=== PATIENT | female | born 1970 | race Asian ===

== ENCOUNTER 2016-08-26 07:23 | Outpatient (CLI) | payer OTHER ==
[2016-08-26 08:11] LABS: PLATELET COUNT 277 K/uL (152-353)
[2016-08-26 08:14] LABS: POTASSIUM 3.6 mmol/L (3.6-5.2); SODIUM 137 mmol/L (136-145)
== END 2016-08-26 19:09 | disposition home or self-care (01) ==
LOC: LABW 07:23
PROVIDERS: Family Medicine
DX: R20.2 Paresthesia of skin (principal); R53.83 Other fatigue; I10 Essential (primary) hypertension; E78.4 Other hyperlipidemia; E55.9 Vitamin D deficiency, unspecified
CPT/HCPCS: 36415; 80053; 80061; 81000; 82306; 82607; 83036; 84443; 85027

== ENCOUNTER 2016-12-22 12:01 | Outpatient (CLI) | payer OTHER ==
[2016-12-22 12:40] LABS: POTASSIUM 3.7 mmol/L (3.6-5.2); SODIUM 141 mmol/L (136-145)
== END 2016-12-22 19:06 | disposition home or self-care (01) ==
LOC: LABW 12:01
PROVIDERS: Family Medicine
DX: E03.8 Other specified hypothyroidism (principal); R60.0 Localized edema
CPT/HCPCS: 36415; 80053; 81000; 83880; 84436; 84443

== ENCOUNTER 2017-11-07 10:06 | Outpatient (CLI) | payer OTHER | END 2017-11-07 20:45 | disposition home or self-care (01) | LOC: RAD 10:06 | DX: M25.532 Pain in left wrist (principal) ==

== ENCOUNTER 2017-11-26 08:28 | Emergency (ER) | payer OTHER ==
[~2017-11-26] VITALS: Ht 175.3 cm; Wt 173.3 kg
[2017-11-26 09:23] LABS: PLATELET COUNT 310 K/uL (152-353); POTASSIUM 3.8 mmol/L (3.6-5.2)
[2017-11-26 13:22] VITALS: BP 168/80; TEMP 98.1
== END 2017-11-26 13:33 | disposition home or self-care (01) ==
LOC: ED 08:28
PROVIDERS: Specialist
DX: M54.9 Dorsalgia, unspecified (principal); N39.0 Urinary tract infection, site not specified; N20.0 Calculus of kidney
CPT/HCPCS: 36415; 80048; 81000; 85027; 96365; 96372; 99284; J0690; J1170; J1885; J2405; Q9963

== ENCOUNTER 2017-12-08 08:00 | Outpatient (CLI) | payer OTHER | END 2017-12-08 19:13 | disposition home or self-care (01) | LOC: RAD 08:00 | DX: M54.17 Radiculopathy, lumbosacral region (principal) | CPT/HCPCS: 36415; 85651; 86039; 86140; 86431 ==

== ENCOUNTER 2018-02-01 15:22 | Outpatient (CLI) | payer OTHER | END 2018-02-01 22:20 | disposition home or self-care (01) | LOC: LABW 15:22 | DX: E03.8 Other specified hypothyroidism (principal); N95.1 Menopausal and female climacteric states; M25.561 Pain in right knee; M25.461 Effusion, right knee | CPT/HCPCS: 36415; 82670; 83001; 83002; 84439; 84443 ==

== ENCOUNTER 2018-02-20 15:25 | Outpatient (CLI) | payer OTHER | END 2018-02-20 21:18 | disposition home or self-care (01) | LOC: US 15:25 | DX: M25.561 Pain in right knee (principal); N95.1 Menopausal and female climacteric states; E03.8 Other specified hypothyroidism; E01.0 Iodine-deficiency related diffuse (endemic) goiter ==

== ENCOUNTER 2018-05-02 15:18 | Outpatient (CLI) | payer OTHER | END 2018-05-02 21:27 | disposition home or self-care (01) | LOC: MAMMO 15:18 | DX: Z12.31 Encounter for screening mammogram for malignant neoplasm of breast (principal) ==

== ENCOUNTER 2018-10-21 19:16 | Emergency (ER) | payer OTHER ==
[~2018-10-21] VITALS: Ht 175.3 cm; Wt 136.5 kg
[2018-10-21] MEDS ORDERED: ENALAPRIL5 MG PO (19:28)
[2018-10-21] MEDS ORDERED: TOPAMAX100 MG PO (19:28)
[2018-10-21] MEDS ORDERED: LORA10TA3 PO (19:29)
[2018-10-21] MEDS ORDERED: OMEP40CA PO (19:29)
[2018-10-21 21:10] VITALS: BP 112/65; TEMP 97.5
== END 2018-10-21 21:10 | disposition home or self-care (01) ==
LOC: ED 19:16
DX: M54.5 Low back pain (principal)
CPT/HCPCS: 81000; 99283

== ENCOUNTER 2018-11-16 12:04 | Outpatient (CLI) | payer OTHER ==
[~2018-11-16 12:04] MED LIST: ENALAPRIL5 MG PO; LORA10TA3 PO; OMEP40CA PO; TOPAMAX100 MG PO
== END 2018-11-16 23:11 | disposition home or self-care (01) ==
LOC: RAD 12:04
DX: M25.532 Pain in left wrist (principal)

== ENCOUNTER 2019-06-07 07:14 | Emergency (ER) | payer OTHER ==
[~2019-06-07] VITALS: Ht 175.3 cm; Wt 169.6 kg
[2019-06-07 07:19] VITALS: TEMP 98.2
[2019-06-07 07:48] LABS: PLATELET COUNT 290 K/uL (152-353)
[2019-06-07 08:07] LABS: POTASSIUM 3.7 mmol/L (3.6-5.2)
[2019-06-07 11:20] VITALS: BP 106/66
== END 2019-06-07 11:20 | disposition home or self-care (01) ==
LOC: ED 07:14
PROVIDERS: Emergency Medicine
DX: R10.84 Generalized abdominal pain (principal); R19.7 Diarrhea, unspecified; R11.2 Nausea with vomiting, unspecified
CPT/HCPCS: 80053; 81000; 82150; 83690; 85027; 96360; 99284; J1885; Q9963

== ENCOUNTER 2019-08-09 08:36 | Outpatient (CLI) | payer OTHER | END 2019-08-09 22:38 | disposition home or self-care (01) | LOC: MAMMO 08:36 | DX: Z12.31 Encounter for screening mammogram for malignant neoplasm of breast (principal) ==

== ENCOUNTER 2019-08-29 21:11 | Emergency (ER) | payer OTHER ==
[~2019-08-29] VITALS: Ht 175.3 cm; Wt 170.1 kg
[2019-08-29] MEDS ORDERED: LEVO0.0723 PO (21:48)
[2019-08-29 21:58] LABS: PLATELET COUNT 273 K/uL (152-353)
[2019-08-29 22:05] LABS: POTASSIUM 3.2 mmol/L (3.6-5.2); SODIUM 136 mmol/L (136-145)
[2019-08-29 23:01] VITALS: BP 142/81; TEMP 98.3
== END 2019-08-29 23:02 | disposition home or self-care (01) ==
LOC: ED 21:11
PROVIDERS: Emergency Medicine
DX: R07.89 Other chest pain (principal)
CPT/HCPCS: 80053; 82550; 82553; 84484; 85027; 85379; 93005; 96372; 99283; J1885

== ENCOUNTER 2020-06-12 13:27 | Outpatient (CLI) | payer OTHER ==
[~2020-06-12 13:27] MED LIST changes: +LEVO0.0723 PO
== END 2020-06-12 19:06 | disposition home or self-care (01) ==
LOC: RAD 13:27
PROVIDERS: ATTEND Nurse Practitioner
DX: R06.02 Shortness of breath (principal); R07.9 Chest pain, unspecified

== ENCOUNTER 2020-06-16 20:53 | Emergency (ER) | payer OTHER ==
[~2020-06-16] VITALS: Ht 172.7 cm; Wt 146.1 kg
[2020-06-16 21:10] VITALS: TEMP 97.7
[2020-06-16 22:45] LABS: PLATELET COUNT 242 K/uL (152-353)
[2020-06-16 23:08] LABS: POTASSIUM 3.7 mmol/L (3.6-5.2)
[2020-06-17 00:42] VITALS: BP 136/73
== END 2020-06-17 00:42 | disposition home or self-care (01) ==
LOC: ED 20:53
PROVIDERS: Emergency Medicine Emergency Medical Services
DX: M79.661 Pain in right lower leg (principal)
CPT/HCPCS: 36415; 80048; 85027; 85379; 85610; 96360; 96372; 96375; 99284; J1650; J2270; J2405

== ENCOUNTER 2020-06-17 09:58 | Emergency (ER) | payer OTHER ==
[~2020-06-17] VITALS: Ht 172.7 cm; Wt 146.1 kg
[2020-06-17 10:05] VITALS: TEMP 100.5
[2020-06-17 12:50] VITALS: BP 110/60
== END 2020-06-17 12:50 | disposition home or self-care (01) ==
LOC: ED 09:58
DX: I82.431 Acute embolism and thrombosis of right popliteal vein (principal)
CPT/HCPCS: 96372; 99283; J2175

== ENCOUNTER 2020-06-19 13:31 | Outpatient (CLI) | payer OTHER | END 2020-06-19 20:20 | disposition home or self-care (01) | LOC: CT 13:31 | PROVIDERS: ATTEND Nurse Practitioner | DX: I82.409 Acute embolism and thrombosis of unspecified deep veins of unspecified lower extremity (principal); R06.02 Shortness of breath; R07.9 Chest pain, unspecified | CPT/HCPCS: Q9963 ==

== ENCOUNTER 2020-06-19 16:02 | Emergency (ER) | payer OTHER ==
[~2020-06-19] VITALS: Ht 172.7 cm; Wt 146.1 kg
[2020-06-19 17:01] LABS: PLATELET COUNT 328 K/uL (152-353)
[2020-06-19 17:06] LABS: POTASSIUM 3.7 mmol/L (3.6-5.2); SODIUM 134 mmol/L (136-145)
[2020-06-19 17:20] LABS: PARTIAL THROMBOPLASTIN TIME 30.1 SECONDS (24.5-33.6)
[2020-06-19 20:00] VITALS: BP 114/71; TEMP 98.8
== END 2020-06-19 20:00 ==
LOC: ED 16:02
PROVIDERS: Hospitalist
DX: I26.99 Other pulmonary embolism without acute cor pulmonale (principal)
CPT/HCPCS: 36415; 36600; 80053; 82550; 82805; 83880; 84484; 85027; 85610; 85730; 93005; 96372; 96374; 99285; J1170; J1650; J2270

== ENCOUNTER 2020-09-04 11:31 | Outpatient (CLI) | payer OTHER | END 2020-09-04 20:08 | disposition home or self-care (01) | LOC: MAMMO 11:31 | PROVIDERS: ATTEND Obstetrics & Gynecology | DX: Z12.31 Encounter for screening mammogram for malignant neoplasm of breast (principal) ==

== ENCOUNTER 2022-06-01 08:54 | Outpatient (CLI) | payer OTHER | END 2022-06-01 20:11 | disposition home or self-care (01) | LOC: MAMMO 08:54 | PROVIDERS: ATTEND Obstetrics & Gynecology | DX: Z12.31 Encounter for screening mammogram for malignant neoplasm of breast (principal) ==